=== PATIENT | female | born 1965 | race Two or more races ===

== ENCOUNTER 2023-07-09 09:19 | Inpatient (IN) | payer SELFPAY ==
[2023-07-09] VITALS (8 sets, daily range): BP systolic 97; BP diastolic 58; PULSE 86–130; RESP 18–22; TEMP 97.7; O2SAT 95–100
[~2023-07-09] VITALS: Ht 157.5 cm; Wt 106.5 kg
[2023-07-09 10:12] LABS: Basophils # (auto) 0 10 ^3/uL (0-0.2); Basophils % (auto) 0.3 % (0.0-2.0); Eosinophils # (auto) 0.5 10 ^3/uL (0-0.8); Hematocrit 38.4 % (36.0-46.0); Hemoglobin 12.3 g/dL (12.2-16.2); Lymphocytes # (auto) 2.2 10 ^3/uL (0.4-5.4); Lymphocytes % (auto) 14.8 % (10.0-50.0); Mean Corpuscular Hemoglobin 28.3 pg (28.0-32.0); Mean Corpuscular Hgb Conc. 32.1 g/dL (32.0-36.0); Mean Corpuscular Volume 88.1 fL (80.0-100.0); Monocytes # (auto) 0.9 10 ^3/uL (0-1.3); Monocytes % (auto) 5.8 % (0.0-12.0); Neutrophils # (auto) 11.4 10 ^3/uL (1.6-8.6); Neutrophils % (auto) 76.1 % (37.0-80.0); Nucleated Red Blood Cells % 0.1 %; Red Blood Cells 4.36 10^6/uL (4.0-5.20); Red Cell Distribution Width 12.7 % (11.8-14.3)
[2023-07-09] MEDS: ASPirin-EC 325mg tab PO ONE (10:13)
[2023-07-09 10:33] LABS: COVID19 ANTIGEN SOFIA FIA NEGATIVE (NEGATIVE)
[2023-07-09 10:34] LABS: Alanine Aminotransferase 11 U/L (7-40); Albumin 4.3 g/dL (3.2-4.8); Alkaline Phosphatase 144 U/L (46-116); Anion Gap 10 (5-15); Aspartate Aminotransferase 11 U/L (13-40); BUN/Creatinine Ratio 29.6 (10.0-20.0); Blood Urea Nitrogen 37 mg/dL (9-23); Calcium 9.4 mg/dL (8.7-10.4); Carbon Dioxide 22 mmol/L (20-30); Chloride 106 mmol/L (98-107); Glucose 169 mg/dL (74-106); Lipase 36 U/L (12-53); Potassium 4.6 mmol/L (3.5-5.1); Sodium 138 mmol/L (136-145)
[2023-07-09 10:35] LABS: Bilirubin, Total 0.7 mg/dL (0.2-1.0); Total Protein 7.4 g/dL (5.7-8.2)
[2023-07-09 10:39] LABS: Magnesium 1.2 mg/dL (1.6-2.6)
[2023-07-09 10:40] LABS: Rapid Influenza A Negative (Negative); Rapid Influenza B Negative (Negative)
[2023-07-09 10:53] LABS: Lactic Acid w/Reflex 2.1 mmol/L (0.4-2.0)
[2023-07-09] MEDS: IOHEXOL 350 MG/ML 100ML IJ ONE (12:14)
[2023-07-09] MEDS ORDERED: ONDANSETRON HCL 4 MG/2 ML VIAL IV PRN (13:45)
[2023-07-09] MEDS ORDERED: NITROGLYCERIN 0.4 MG SL TAB SL PRN (13:45)
[2023-07-09] MEDS ORDERED: DEXTROSE (50%) 50ML SYRG IV PRN (13:45)
[2023-07-09] MEDS ORDERED: MORPHINE SULFATE INJ 2 MG/ml SYRG IV PRN (13:45)
[2023-07-09] MEDS ORDERED: DOCUSATE SOD 100 MG CAP PO PRN (13:45)
[2023-07-09] MEDS ORDERED: HYDROcodone-ACET 5/325MG TAB PO PRN (13:45)
[2023-07-09] MEDS ORDERED: METF-372 PO (13:46)
[2023-07-09] MEDS ORDERED: LISI-275 PO (13:46)
[2023-07-09] MEDS ORDERED: ATOR80TA PO (13:46)
[2023-07-09] MEDS ORDERED: ASPI81CH49 PO (13:46)
[2023-07-09] MEDS ORDERED: GLIP10TA9 PO (13:46)
[2023-07-09] MEDS ORDERED: PANT40TA2 PO (13:46)
[2023-07-09] MEDS: SODIUM CHLORIDE 0.9% 3,050 ML IV ONE (13:58)
[2023-07-09] MEDS: VANCOMYCIN 1GM/200ML 200 ML IV ONE (14:10)
[2023-07-09 17:05] LABS: Urine Bacteria MANY /hpf (None Seen); Urine Blood Negative /uL (Negative); Urine Clarity HAZY (Clear); Urine Color Yellow (Yellow); Urine Mucus FEW (None Seen); Urine Protein, UAD TRACE (Negative); Urine Urobilinogen Normal (Negative); Urine WBC 18 /hpf (0 - 5); Urine pH 5.5 (5.0-8.0)
[2023-07-09 17:18] LABS: Urine Specific Gravity > 1.050 (1.001-1.035)
[2023-07-09] MEDS: LEVALBUTEROL HCL 1.25 MG/3 ML NEB NEB SCH (17:54)
[2023-07-09] MEDS: IPRATROPIUM BROM 0.5 MG/2.5ML INH SOL NEB SCH (17:54)
[2023-07-09] MEDS: InsuLIN REG 1unit/0.01ml Soln (100units/ml) SC SCH (18:20)
[2023-07-09] MEDS: ACCU-CHEK COMFORT CURVE STRIP VI SCH (18:20)
[2023-07-09] MEDS: PIPERACILLIN-TAZO 4.5GM 100 ML IV ONE (18:42)
[2023-07-09] MEDS: AZITHROMYCIN 500MG/ 250ML 250 ML IV ONE (18:53)
[2023-07-09] MEDS: MAGNESIUM SULFATE 1GM/100ML 100 ML IV SCH ×2 (21:10→21:58)
[2023-07-09] MEDS: ATORVASTATIN 20 MG TAB PO SCH (21:57)
[2023-07-09] MEDS ORDERED: PATIENTS OWN MEDICATION (Atorvastatin Calcium (Lipitor) 1 TAB) PO SCH (22:00)
[2023-07-10] VITALS (14 sets, daily range): BP systolic 103–126; BP diastolic 54–69; PULSE 86–113; RESP 16–22; TEMP 97.7–98.5; O2SAT 94–99
[2023-07-10] MEDS ORDERED: ESOM40CA39 PO (00:10)
[2023-07-10 06:08] LABS: Basophils # (auto) 0 10 ^3/uL (0-0.2); Basophils % (auto) 0.5 % (0.0-2.0); Eosinophils # (auto) 0.4 10 ^3/uL (0-0.8); Eosinophils % (auto) 4.1 % (0.0-7.0); Hematocrit 31.9 % (36.0-46.0); Hemoglobin 10.6 g/dL (12.2-16.2); Lymphocytes # (auto) 1.8 10 ^3/uL (0.4-5.4); Lymphocytes % (auto) 20.7 % (10.0-50.0); Mean Corpuscular Hemoglobin 29.3 pg (28.0-32.0); Mean Corpuscular Hgb Conc. 33.3 g/dL (32.0-36.0); Mean Corpuscular Volume 88.1 fL (80.0-100.0); Monocytes # (auto) 0.7 10 ^3/uL (0-1.3); Monocytes % (auto) 7.8 % (0.0-12.0); Neutrophils # (auto) 5.7 10 ^3/uL (1.6-8.6); Neutrophils % (auto) 66.9 % (37.0-80.0); Red Blood Cells 3.62 10^6/uL (4.0-5.20); Red Cell Distribution Width 13.1 % (11.8-14.3); White Blood Cell 8.5 10^3/uL (4.4-10.8)
[2023-07-10 06:22] LABS: Albumin 3.7 g/dL (3.2-4.8); Alkaline Phosphatase 112 U/L (46-116); Anion Gap 9 (5-15); Aspartate Aminotransferase 9 U/L (13-40); Bilirubin, Total 0.6 mg/dL (0.2-1.0); Calcium 8.8 mg/dL (8.7-10.4); Carbon Dioxide 20 mmol/L (20-30); Chloride 107 mmol/L (98-107); Glucose 157 mg/dL (74-106); Potassium 4.3 mmol/L (3.5-5.1); Sodium 136 mmol/L (136-145); Total Protein 6.7 g/dL (5.7-8.2)
[2023-07-10 06:34] LABS: Alanine Aminotransferase < 9 U/L (7-40); Blood Urea Nitrogen 23 mg/dL (9-23)
[2023-07-10] MEDS ORDERED: cefTRIAXone 1GM/50ML D5W 50 ML IV SCH (09:00)
[2023-07-10] MEDS ORDERED: PATIENTS OWN MEDICATION (Aspirin 81 MG) PO SCH (10:00)
[2023-07-10] MEDS ORDERED: levoFLOXacin 750MG 150 ML IV SCH (10:00)
[2023-07-10] MEDS: methylPREDNISolone SOD SUCC 40 MG/ML VL IV SCH (10:52)
[2023-07-10] MEDS: ENOXAPARIN SOD 40 MG/0.4 ML SYRINGE SC SCH (10:52)
[2023-07-10] MEDS: ASPirin-EC 81 mg tab PO SCH (10:53)
[2023-07-10] MEDS: PANTOPRAZOLE 40 MG TAB PO SCH (10:53)
[2023-07-10] MEDS: cefTRIAXone 1GM/50ML D5W 50 ML IV SCH (19:49)
[2023-07-10] MEDS: DOXYCYCLINE 100MG/250ML 250 ML IV SCH (21:52)
[2023-07-10] MEDS: ACETAMINOPHEN 325 MG TAB PO PRN (21:57)
[2023-07-11] VITALS (15 sets, daily range): BP systolic 98–134; BP diastolic 61–84; PULSE 73–107; RESP 16–21; TEMP 97.9–98.2; O2SAT 93–100
[2023-07-12] VITALS (11 sets, daily range): BP systolic 119–150; BP diastolic 75–80; PULSE 90–113; RESP 16–20; TEMP 97.6–98.3; O2SAT 94–100
[2023-07-12] MEDS ORDERED: AZIT-43 PO (15:18)
== END 2023-07-12 17:36 | disposition home or self-care (01) | DRG 871 ==
LOC: ER 09:19 → TELE 13:32 → TELE-EAST 22:42 → EAST 07-11 15:37
PROVIDERS: ADMIT Hospitalist; ATTEND Internal Medicine
DX: A41.9 Sepsis, unspecified organism (principal); J18.9 Pneumonia, unspecified organism; J96.00 Acute respiratory failure, unspecified whether with hypoxia or hypercapnia; J45.901 Unspecified asthma with (acute) exacerbation; N17.9 Acute kidney failure, unspecified; Z68.41 Body mass index [BMI] 40.0-44.9, adult; E11.9 Type 2 diabetes mellitus without complications; Z20.822 Contact with and (suspected) exposure to COVID-19; E66.9 Obesity, unspecified; E78.5 Hyperlipidemia, unspecified; E86.0 Dehydration; I10 Essential (primary) hypertension; Z82.49 Family history of ischemic heart disease and other diseases of the circulatory system; Z82.3 Family history of stroke
CPT/HCPCS: 36415; 71045; 71275; 80053; 81001; 82962; 83605; 83690; 83735; 84443; 84484; 85025; 85379; 87040; 87426; 87804; 93005; 94640; G0378; J1815; J2543; J3490